=== PATIENT | female | born 1945 | race Caucasian/White ===

== ENCOUNTER → 2018-07-05 | Outpatient (CLI) | payer MEDICARE, MEDICAID | LOC: M RAD 09:56 | DX: C50.919 Malignant neoplasm of unspecified site of unspecified female breast (principal); M54.5 Low back pain | CPT/HCPCS: 78306 ==

== ENCOUNTER → 2024-06-09 | Outpatient (CLI) | payer MEDICARE, MEDICAID ==
[~2024-06-09] MED LIST: AMLO1TAB24 PO; ASPI81CH48 PO; ASPI81TA86 PO; BREAST PROSTHESIS L XX; BUSP10TA PO; CLOP75TA99 PO; CRES5TAB PO; ENTR1TAB; FERR325T81 PO; FURO20TA2; HYDR12CA PO; IRBE150T14 PO; IRBE75TA11 PO; IRON1TAB2 PO; LABE100T6 PO; LABE20TAB PO; LEVO137T2; LOVA40TA PO; MASTECTOMY BRA LEFT XX; MECL-86; MULTCAP PO; NAPR220C14 PO; PANT40TA29; POTA10CA70 PO; SYNT75TA PO; VENL37.598; VITA500C24 PO; [UNRECOGNIZED DRUG - OTHER]; vitamin D PO
== END ==
LOC: M PLARAD 14:57
PROVIDERS: ATTEND Internal Medicine Medical Oncology
DX: C43.8 Malignant melanoma of overlapping sites of skin (principal); K44.9 Diaphragmatic hernia without obstruction or gangrene; Z85.3 Personal history of malignant neoplasm of breast
CPT/HCPCS: 78816; A9552